=== PATIENT | male | born 1965 | race Caucasian/White ===

== ENCOUNTER 2017-10-30 10:18 | Emergency (ER) | payer MEDICAID, SELFPAY ==
[2017-10-30 10:21] VITALS: BP 155/98; PULSE 117; RESP 16; TEMP 36.7; O2SAT 97; BMI 33.6
--- NOTE | 2017-10-30 10:39 | RAD_ITS ---
STUDY: X-RAY - LEFT SHOULDER REASON FOR EXAM: Left shoulder pain, injury in August. TECHNIQUE: 4 view(s) of the shoulder. COMPARISON: None. FINDINGS: Normal glenohumeral articulation. Normal acromioclavicular joint. Normal acromion. There is a bone island in the humeral head. There is a very small soft tissue calcification at the inferior aspect of the glenoid on the external rotation view. Normal visualized pulmonary apex. RAD/Shoulder min 2 Views IMPRESSION: No demonstrated fracture or dislocation. Electronically Signed: Grady Naik MD at 11:11 EST Tel , Service support ,
[2017-10-30] MEDS: Ketorolac 60 MG/2 ML Vial IM (10:46)
--- NOTE | 2017-10-30 10:47 | ED.DCSUM_ITS ---
- ER Visit Summary Date of Service: 10/30/17 Chief Complaint: Left shoulder pain History of Present Illness: The patient is a 51 M presenting with left shoulder pain ?1 month. He states he fell approximately a month ago. He was seen in another ED at that time. He states x-rays were unremarkable. He followed up with his primary care physician. He was sent to physical therapy. He states he is still in physical therapy. He complains of persistent continued pain. He takes a muscle relaxer at home. Denies other complaints. Physical Examination: Vitals are stable. Patient is afebrile. Alert no acute distress. HEENT exam is unremarkable. Neck is supple. Lungs are clear and equal bilaterally. Heart is regular rate and rhythm. Extremities left anterior shoulder tenderness. Active full range of motion. No erythema or warmth. Neurovascularly intact distally. Skin is warm and dry. No focal neurologic deficit. Remainder of exam is unremarkable. Emergency Department Course and Treatment: Patient was given Toradol IM. Left shoulder x-ray shows no acute process. He was advised to follow-up with his primary care physician. Advised return to ED if worsening complaints. Disposition: Discharge home Impression: Left shoulder pain This note was generated with [employer] dictation software. It may contain incorrect words, spelling, and punctuation that were not noted in review of the chart prior to signing ED Disposition - Plan for ED Patient: Disposition: Home or Assisted Living Chief Complaint: Upper Extremity Injury Instructions: ED Sprain Shoulder Prescriptions: Naproxen [Naprosyn] 500 mg PO BID PRN #20 tablet Referrals: Fran Gooden DO [STAFF PHYSICIAN] - [facility] Doctor,Out of [NON-STAFF] -
--- NOTE | 2017-10-30 11:25 | DCINST.ED_ITS ---
ED Disposition - Plan for ED Patient: Chief Complaint: Upper Extremity Injury Instructions: ED Sprain Shoulder Prescriptions: Naproxen [Naprosyn] 500 mg PO BID PRN #20 tablet Referrals: [facility] Doctor,Out of [NON-STAFF] - Fran Gooden DO [STAFF PHYSICIAN] -
[2017-10-30 11:36] VITALS: BP 122/67; PULSE 81; RESP 16; O2SAT 98
== END 2017-10-30 11:37 | disposition home or self-care (01) ==
LOC: ED 11:09
PROVIDERS: Emergency Provider Emergency Medicine; Family Provider Nurse Practitioner Family; PCP Nurse Practitioner Family
DX: M25.512 Pain in left shoulder (principal); E11.9 Type 2 diabetes mellitus without complications
CPT/HCPCS: 73030; 96372; 99282